=== PATIENT | male | born 1985 | race Two or more races ===

== ENCOUNTER 2025-01-03 05:31 | Emergency (ER) | payer OTHER, SELFPAY ==
[2025-01-03 05:33] VITALS: BMI 40.1
[2025-01-03 05:34] VITALS: BP 176/92; PULSE 105; RESP 19; TEMP 36.7; O2SAT 99
--- NOTE | 2025-01-03 06:29 | EKG_ITS ---
[facility] (Formerly [facility]) Test Date: 2025-01-03 Pat Name: FELY MILLS Department: Room: - Gender: Male Change Manager: : 1985 Requested By: Juan Manuel Munson Order Number: [id number] Reading MD: Juan Manuel Munson Measurements Intervals Springer Rate: 92 P: 18 UT: 183 QRS: -3 QRSD: 86 T: 22 QT: 356 QTc: 442 Interpretive Statements SINUS RHYTHM POSSIBLE RIGHT VENTRICULAR CONDUCTION DELAY [RSR (QR) IN V1/V2] No previous ECG available for comparison /[id number]/[email or web address]/[id number].pdf
--- NOTE | 2025-01-03 06:29 | PD.EDCHEST ---
ED Chest Pain RME/HPI General Chief Complaint: General Adult/Misc Complain Stated Complaint: HEAD ACHE THINKS BP IS HIGH Time Seen by Provider: 01/03/25 06:30 Source: patient Arrival date/time: 01/03/25 05:31 39-year-old male with a history of hypertension presents to the emergency room with a chief complaint of left-sided sternal chest pain that radiates down his left arm, palpitations, elevated blood pressure. Patient states he was drinking last night and believes his symptoms are related to that. Patient has also stopped taking his blood pressure medication for the last 3 days. Mode of arrival: ambulatory Limitations: no limitations Related Data Home Medications ?Medication ?Instructions ?Recorded ?Confirmed lisinopril 20 mg tablet 20 mg PO QDAY 01/25/19 07/26/19 Previous Rx's ?Medication ?Instructions ?Recorded amlodipine 5 mg tablet 5 mg PO QDAY #30 tabs 01/25/19 furosemide 20 mg tablet (Lasix) 20 mg PO QDAY #14 tabs 01/25/19 lisinopril 20 mg tablet 20 mg PO BID #60 tabs 01/25/19 lisinopril 20 mg tablet 20 mg PO BID #60 tabs 11/28/21 hydrochlorothiazide 12.5 mg capsule 12.5 mg PO QDAY #14 caps 01/03/25 lisinopril 20 mg tablet 20 mg PO QDAY #14 tabs 01/03/25 Allergies Allergy/AdvReac Type Severity Reaction Status Date / Time No Known Allergies Allergy Verified 01/03/25 05:39 ED Exam General Limitations: Present no limitations Course Quality Measures none Orders Category Date Time Status EKG (ED ONLY) *Do not use* NOW Care 01/03/25 06:29 Completed EKG (ED Only) Stat Exams 01/03/25 06:29 Draft B-Type Natriuretic Peptide Stat Lab 01/03/25 06:53 Completed CBC Stat Lab 01/03/25 06:53 Completed Comprehensive Metabolic Panel Stat Lab 01/03/25 06:53 Completed Troponin I Stat Lab 01/03/25 06:53 Completed cloNIDine HCL [Catapres] Med 01/03/25 06:29 Discontinued 0.1 mg PO X1 ONE Vital Signs Vital signs: Vital Signs Temperature 98.1 F 01/03/25 05:34 Pulse Rate 105 H 01/03/25 05:34 Respiratory Rate 19 01/03/25 05:34 Blood Pressure 176/92 H 01/03/25 05:34 Pulse Oximetry (%) 99 01/03/25 05:34 Oxygen Delivery Method Room Air 01/03/25 05:34 Chest Pain MDM Narrative MDM Narrative:: 39-year-old male with a history of hypertension presents to the emergency room with a chief complaint of left-sided sternal chest pain that radiates down his left arm, palpitations, elevated blood pressure. Patient states he was drinking last night and believes his symptoms are related to that. Patient has also stopped taking his blood pressure medication for the last 3 days. Patient is hemodynamically stable and in no apparent distress. Patient's blood pressure is 176/92. Antihypertensive medication was given with improvement to his blood pressure and symptoms Physical examination shows some left-sided sternal chest pain that is an 8 out of 10 in severity and radiates to his left arm. The patient also states he is having an elevated heart rate. The patient has clear bilateral lung sounds there is no wheezing stridor or any abnormal breath sounds. The patient has a strong and regular rhythm S1 and S2 is noted. There is no swelling to the lower extremities. An EKG was completed and shows normal sinus rhythm at [address] deviation CBC CMP troponin BNP are all within normal limits. The patient's antihypertensive medication were refilled and he was educated to follow-up with his primary care provider for further titration of his blood pressure. Patient was discharged and educated to follow-up with primary care provider in the next 24 to 48 hours and return to the emergency room for any evidence of worsening signs or symptoms Patient data External records reviewed:: [facility] previous records Clinical information provided by:: patient Social determinants that could affect healthcare access:: none Patient has the following chronic illnesses:: Hypertension How is presenting disease/condition affected by chronic disease/condition?: exacerbated by Evaluation data The following diagnostics were reviewed and interpreted by me:: lab results and radiology exam(s) Lab and/or radiology exams considered but not ordered:: Labs and radiology exams considered in order Interpretation Summary: N/A Medications / Prescriptions Medications or Prescriptions considered but not ordered:: Medication given Medication administrations:: Medication Administration History Discontinued Medications Clonidine (Clonidine Hcl 0.1 Mg Tablet) 0.1 mg PO X1 ONE Stop: 01/03/25 06:30 Last Admin: 01/03/25 07:44 Dose: 0.1 mg Documented By: DB Medication given Consultations Consultation(s) initiated? (list below): No Diagnosis Chest Pain Differential Diagnosis: stable angina, st elevation myocardial infarction, costochondritis, chest pain and other (Asymptomatic hypertensive urgency/hypertensive emergency) Most likely diagnosis given after review of the tests above:: Asymptomatic hypertensive urgency Admission Indicated Admission indicated?: not indicated Admission Request Was there a request for admission?: No Disposition Plan Disposition Plan: Discharge Discharge Attestation Discharge Attestation: The patient and all family members were given an opportunity to ask questions and understood the discharge instructions. Discharge instructions specifically effects, indications for sooner follow up or return to the emergency department, and the expected course of current diagnosis. Patient condition: Stable Discharge Plan Plan Patient Disposition: HOME (Self Care) Discharge Disposition comment: Stable Prescriptions/Referrals Prescriptions/Med Rec: New lisinopril 20 mg tablet 20 mg PO QDAY Qty: 14 0RF hydrochlorothiazide 12.5 mg capsule 12.5 mg PO QDAY Qty: 14 0RF No Action lisinopril 20 mg tablet 20 mg PO QDAY furosemide [Lasix] 20 mg tablet 20 mg PO QDAY Qty: 14 0RF amlodipine 5 mg tablet 5 mg PO QDAY Qty: 30 0RF lisinopril 20 mg tablet 20 mg PO BID Qty: 60 0RF lisinopril 20 mg tablet 20 mg PO BID Qty: 60 0RF Referrals: No Primary/Family,Physician [Primary Care Provider] - In 1 week Problem List Clinical Impression: Asymptomatic hypertensive urgency Patient/Caregiver Discharge Instructions Additional Instructions: Please follow-up with your primary care provider in the next 24 to 48 hours I sent over medication for your high blood pressure. You will need to make an appointment with your primary care provider for further titration and management of your blood pressure Your cardiac examination here in the emergency room was within normal limits. Your blood work was within normal limits For any evidence of worsening signs or symptoms return to the emergency room immediately Print Language: Sinhala Stand Alone Forms: Rosie Award Info., Patient Portal Info Letter PA/LAKSHMI Supervising Physician PA/LAKSHMI Supervising Physician: Dr. Noe
[2025-01-03 07:17] LABS: Basophils # (Auto) 0.0 Thou/mm3 (0.0-0.2); Basophils % (Auto) 0 % (0-2.5); Eosinophils # (Auto) 0.0 Thou/mm3 (0.0-0.5); Eosinophils % (Auto) 0 % (0-10); Hematocrit 44.1 % (41.0-53.0); Hemoglobin 15.3 g/dL (13.5-16.0); Immature Granulocytes Auto 0.10 Thou/mm3 (0.00-0.00); Lymphocytes # (Auto) 1.5 Thou/mm3 (1.0-4.8); Lymphocytes % (Auto) 14 % (10-50); Mean Corpuscular HGB Conc 34.7 g/dl (31.0-37.0); Mean Corpuscular Hemoglobin 29.5 pg (25.0-35.0); Mean Corpuscular Volume 85 fL (80-100); Monocytes # (Auto) 0.8 Thou/mm3 (0.0-0.8); Monocytes % (Auto) 7 % (0-12); Neutrophils # (Auto) 8.1 Thou/mm3 (1.8-7.7); Neutrophils % (Auto) 77 % (37-80); Nucleated Red Blood Cell # 0.00 Thou/mm3 (0.00-0.00); Nucleated Red Blood Cell % 0 /100 WBC (0); Platelet Count 235 Thou/mm3 (140-440); RDW Standard Deviation 40.2 fL (35.1-43.9); Red Blood Count 5.18 Miln/mm3 (4.50-5.90); White Blood Count 10.6 Thou/mm3 (3.8-10.6)
[2025-01-03 07:42] LABS: B-Type Natriuretic Peptide 40 pg/mL (0-100)
[2025-01-03 07:44] VITALS: BP 170/103; PULSE 82
[2025-01-03 07:44] LABS: Alanine Aminotransferase 22 U/L (10-49); Albumin, Serum 4.6 gm/dL (3.5-5.0); Albumin/Globulin Ratio 1.6 (1.2-2.2); Alkaline Phosphatase 72 U/L (46-116); Anion Gap 9 (7-16); Aspartate Amino Transferase 20 U/L (0-34); BUN/Creatinine Ratio 13 Ratio (12-20); Bilirubin,Total 0.3 mg/dL (0.3-1.2); Blood Urea Nitrogen 12 mg/dL (9-23); Calcium 9.1 mg/dL (8.3-10.6); Calcium (Corrected) 9.1 mg/dL (8.5-10.1); Carbon Dioxide 27.0 mMol/L (20.0-31.0); Chloride 103 mMol/L (98-107); Creatinine (Component) 0.9 mg/dL (0.6-1.3); Estimated Creatinine Clearance 147.5 mL/min (>60); Globulin 2.9 gm/dL (2.3-3.5); Glucose 116 mg/dL (74-106); Osmolality,Calculated 278 (275-295); Potassium 4.1 mMol/L (3.4-5.1); Sodium 139 mMol/L (136-145); Total Protein 7.5 gm/dL (5.7-8.2); Troponin I < 0.020 ng/mL (0.0-0.045); eGFR > 60 See Note
[2025-01-03 08:16] VITALS: BP 171/108; PULSE 85; RESP 18; TEMP 36.6; O2SAT 99
== END 2025-01-03 08:30 | disposition home or self-care (01) ==
PROVIDERS: Nurse Practitioner Family; Emergency Provider Family Medicine
DX: I16.0 Hypertensive urgency (principal); I10 Essential (primary) hypertension; R94.31 Abnormal electrocardiogram [ECG] [EKG]
CPT/HCPCS: 36415; 80053; 83880; 84484; 85025; 93005; 99283; A9270